=== PATIENT | female | born 1985 | race Caucasian/White ===

== ENCOUNTER 2017-03-23 09:39 | Day surgery (SDC) | payer OTHER ==
[2017-03-23] VITALS (11 sets, daily range): BP systolic 115–126; BP diastolic 67–88; PULSE 65–74; RESP 14–26; O2SAT 95–97
[~2017-03-23] VITALS: Ht 167.6 cm; Wt 115.0 kg
[~2017-03-23 09:39] MED LIST: GABA-502 PO; HYOS0.3740 PO; IBUP200C PO; OXYB5TAB10 PO; PENT100C9 PO; PHEN-683 PO; THYR60TA2 PO; TRAM50TA2 PO; [UNRECOGNIZED DRUG - CODE] PO
[2017-03-23] MEDS ORDERED: Propofol 10,000 mCg/mL 20 mL Inj ONE (09:40)
[2017-03-23] MEDS ORDERED: Ondansetron 2 mg/mL 2 mL Inj ONE (09:40)
[2017-03-23] MEDS ORDERED: Dexamethasone 4 mg/mL Inj ONE (09:40)
[2017-03-23] MEDS ORDERED: fentaNYL-PF 50 mCg/mL 2 mL Inj ONE (09:40)
[2017-03-23] MEDS ORDERED: CeFAZolin Inj 2 gm / 50mL D5W IV ONE (09:43)
[2017-03-23] MEDS: Lactated Ringer's 1,000 ML IV SCH ×2 (09:47→10:30)
[2017-03-23] MEDS ORDERED: Lactated Ringer's 1,000 ML IV SCH (10:49)
[2017-03-23] MEDS ORDERED: Lactated Ringer's 500 ML IV PRN (10:49)
--- NOTE | 2017-03-23 10:49 | PCM.HPANE ---
Patient Data Surgeon Admitting Provider: Attending Provider:Mckenzie Lacy MD Primary Care Physician:Other,Physician Other Provider:Giuseppe Upton Anesthesia Reason for Visit Chronic Interstitial Cystitis Ht/WT & BMI Height (Feet): 5 Height (Inches): 6 Weight (Kilograms): 115.666 Body Mass Index 40.00 Allergies Coded Allergies: sulfamethoxazole (Verified Allergy, Severe, Hives, 03/18/17) trimethoprim (Verified Allergy, Severe, Hives, 03/18/17) Macrolide Antibiotics (Verified Allergy, Unknown, UNKNOWN, 03/18/17) codeine (Verified Allergy, Unknown, UNKNOWN, 03/18/17) erythromycin base (Verified Allergy, Unknown, UNKNIOWN, 03/18/17) latex (Verified Allergy, Unknown, UNKNOWN, 03/18/17) minocycline (Verified Allergy, Unknown, UNKNOWN, 03/18/17) amitriptyline (Verified Adverse Reaction, Severe, Agitation, 03/18/17) metoclopramide (Verified Adverse Reaction, Severe, Agitation, 03/18/17) metoprolol (Verified Adverse Reaction, Severe, Agitation, 03/18/17) promethazine (Verified Adverse Reaction, Severe, Agitation, 03/18/17) Uncoded Allergies: ANTI-INFECTIVES OPH/OTIC (Allergy, Unknown, UNKNOWN, 03/18/17) LACTAID INTOLERANT, WHEAT (Allergy, Unknown, UNKNOWN, 03/18/17) POVIDONE IODINE (Generic Allergy) (Allergy, Unknown, UNKNOWN, 03/18/17) Past Anesthesia History Anesthesia History: Denies:: Anesthesia Reactions, Malignant Hyperthermia Diabetes History Hx Diabetes?: No MRSA MRSA: No Medications Hypertension Medication: No Home Meds Incl Beta Marybel: No Reported Medications Phenazopyridine (Pyridium)100 Mg [id number] Mg PO TID For Painful Urination Ref 0 03/18/17 Oxybutynin Chloride 5 Mg Tablet5 Mg PO Q 3 DAYS Ref 0 03/18/17 Ibuprofen 200 Mg [id number] Mg PO QID PRN For Pain Ref 0 03/18/17 Hyoscyamine ER 0.375 Mg Tablet0.375 Mg PO QPM 03/18/17 Gabapentin 300 Mg [id number] Mg PO TID Ref 0 03/18/17 Pentosan Polysulfate Sodium (Elmiron)100 Mg [id number] Mg PO TID 03/18/17 Pnv17/Iron/FA/Fish Oil/Dha/Om (Elite-Ob 400 Capsule)1 Each Capsule1 Each PO DAILY 03/18/17 Thyroid,Pork ([place] Thyroid)60 Mg Wwwhfv78 Mg PO DAILY 03/18/17 Tramadol 50 Mg Jwuojw20 Mg PO Q4H PRN For Pain Ref 0 03/18/17 Discontinued Scripts Hydrocodone-Acetaminophen 5-325 mg 1 Each Tablet1 Tablet PO QID PRN For Pain # 12 TABLET Ref 0 Prov:Enoc Finley PAC 07/17/16 History History of ENT Problems?: No HEENT History: Denies:: Abnormal Airway Cataracts Difficult Intubation Dysphagia Glaucoma Hearing Problem Sinus Problem TMJ Denture Type: None Teeth Condition: Within Normal Limits Hx of Heart Problems?: Yes Cardiovascular History: Positive for:: Chest Pain (2003-R/T ANXIETY) Denies:: Heart Murmur Hypertension Hx of Respiratory Problem?: Yes Respiratory History: Positive for:: Asthma Denies:: Use of C-PAP Machine Hx Neurologic Problems?: Yes Neurological History: Positive for:: Headaches Hx of GI Problems?: Yes Other GI Pertinent History: HX IBS C/OF NAUSEA & DIARRHEA Hx of Problems?: Yes Genitourinary History: Positive for:: Urinary Tract Infection (INTERSTITIAL CYSTITIS (CHRONIC)=CURRENT PROBLEM) Other Pertinent History: S/P MULT. CYSTOS Female Hx: Positive for:: Endometriosis Pelvic Inflammatory (HX HSV, CHLAMYDIA) Denies:: Currently (S/P OOPHORECTOMY-HX OVARIAN CYST,D&C,C/S) Skin History: Denies:: History Skin Disorders? Pressure Ulcers Hx Musculoskeletal Problems?: Yes Musculoskeletal History: Positive for:: Fibromyalgia Musculoskeletal Trauma (C/OF HIP PAIN) Denies:: Back Injury (C/OF UPPER/LOWER BACK PAIN) Hx of Psycho/Social Problems?: Yes Psycho Social History: Positive for:: Anxiety (PTSD) Hx Surgeries?: Yes (D&C,C/S,LT WRIST GANGLION EXC,CYSTOS,OOPHORECTOMY) Hx Any Other Health Problems?: Yes Other History: Positive for:: Thyroid Disease Denies:: Cancer Endocrine Disease Hospitalization Hx Diabetes: No Hx Alcohol Use: YesHx Substance Use: No Smoking Status: Former Smoker Have You Smoked inLast 12 mo: No Stop/Bang S-Snoring: Do You Snore Loudly: No T-Tired: feel tired, fatigued: Yes O-Obsered: Observed not breath: No P-Blood Pressure: treated: No B- Body Mass Index > 35 kg/m2: Yes A- Age over 50: No N- Neck Large Circumference: Yes G- Gender Male: No BERTA Total Score: 3 BERTA Risk Assessment: Low Risk, <3 Yes Risk Assessment Category Category 1A: Patient has history of documented sleep apnea, and HAS NOT received any narcotic, sedative or anesthesia administration during this stay. Category 1B: Patient has history of documented sleep apnea, and HAS received any narcotic , sedative or anesthesia administration during this stay Category 2: Patient has SUSPECTED Obstructive Sleep Apnea, and HAS received any narcotic , sedative or anesthesia administration during this stay. Category 3: Patient has SUSPECTED Obstructive Sleep Apnea and HAS NOT received narcotic, sedative or anesthesia administration during this stay. Category 4: Outpatient in Procedural Areas with known sleep apnea or who screen positive for High Risk via the STOP/BANG questionnaire. Exam Exam General Appearance: Alert, Oriented X3, Cooperative HEENT/AIRWAY: MP 2 Lungs: Clear to Auscultation Heart: Exam Unremarkable, Regular Rate/Rhythm Meds/Labs/Diagnostics Admission Meds Current Medications Lactated Ringer's (Lr) 1,000 ml @ 120 mls/hr Q8H20M IV Last administered on 09:47; Start 03/23/17 at 05:00; Stop 03/23/17 at 13:19 Plan Impression Patient chart reviewed, patient interviewed and anesthestic plan with risks, benefits, and alternatives discussed, and informed consent obtained. ASA Physical Status: ASA2 Mod Systemic Disease Anesthetic Plan: GA Bene/Risks/Altern/Consents: Yes HP Complete Prior to Induction: Yes El Mitchell DO Mar 23, 2017 10:00
[2017-03-23] MEDS ORDERED: HYDROmorphone 1 mg/mL Inj IVPUSH PRN (10:50)
[2017-03-23] MEDS ORDERED: Atropine 0.4 mg/mL Inj IVPUSH PRN (10:50)
[2017-03-23] MEDS ORDERED: EPHEDrine Sulfate 50 mg/mL Inj IVPUSH PRN (10:50)
[2017-03-23] MEDS ORDERED: Ondansetron 2 mg/mL 2 mL Inj IVPUSH PRN (10:50)
[2017-03-23] MEDS ORDERED: Dexamethasone 4 mg/mL Inj IVPUSH PRN (10:50)
[2017-03-23] MEDS ORDERED: Phenylephrine 10,000 mCg/mL Inj IVPUSH PRN (10:50)
[2017-03-23] MEDS ORDERED: Belladonna Alk-Opium 60 mg Rectal Suppository RECTAL ONE ×2 (11:10→11:12)
[2017-03-23] MEDS ORDERED: HYDROcodone-APAP 5-325 mg Tablet PO PRN (11:25)
[2017-03-23] MEDS ORDERED: Ondansetron 8 mg ODT Tablet PO PRN (11:25)
[2017-03-23] MEDS ORDERED: Phenazopyridine 97.5 mg Tablet PO PRN (11:25)
[2017-03-23] MEDS: fentaNYL-PF 50 mCg/mL 2 mL Inj IVPUSH PRN ×2 (11:42→12:03)
--- NOTE | 2017-03-23 14:18 | PCM.ANEP1 ---
Post Anesthesia Phase 1 PACU Phase 1 Assessment Vital Signs Vital Signs Date Time Temp Pulse Resp B/P Pulse Ox O2 Delivery O2 Flow Rate FiO2 03/23/17 12:53 68 16 116/67 97 Room Air 03/23/17 12:15 65 16 123/76 97 Room Air 03/23/17 12:10 67 19 120/73 96 Room Air 03/23/17 12:00 70 18 121/74 97 Room Air 03/23/17 11:50 68 21 116/74 96 Room Air 03/23/17 11:45 36.8 70 18 116/73 96 Room Air 03/23/17 11:40 69 26 115/76 96 Room Air 03/23/17 11:30 67 17 119/80 95 Room Air 03/23/17 11:25 69 14 115/80 95 Room Air 03/23/17 11:20 36.9 68 14 126/78 95 Room Air 03/23/17 10:02 36.5 74 16 119/88 95 Room Air Anesthetic Administered: GA Level of Alertness: Awake, talking BRANHAM's with Equal Strength: Yes Pain: No Nausea or Vomiting: No Cardiovascular Function and Hy: Yes Oxygen Delivery: Simple Mask Lungs: Clear to Auscultation Dermatome Level: Full Sensation Complications: No Follow up Care: No Patient Instructions Provided: Yes El Mitchell DO Mar 23, 2017 14:18
--- NOTE | 2017-03-24 09:30 | OP ---
[address] [address] OPERATIVE REPORT PATIENT: CORY MARTIN : 1985 MR#: [id number] ADMIT: 03/23/2017 JOB ID: [id number] DATE OF SURGERY: 03/23/2017 PROCEDURE NAME: Cystoscopy with hydrodistention and Clorpactin instillation. SURGEON: Mckenzie Lacy M.D. ANESTHESIA: General. PREOPERATIVE DIAGNOSIS(ES): Longstanding pelvic pain, interstitial cystitis, urinary urgency, frequency. POSTOPERATIVE DIAGNOSIS(ES): Longstanding pelvic pain, interstitial cystitis, urinary urgency, frequency. INDICATIONS: The patient is a 31-year-old woman with longstanding history of above-mentioned symptoms failing medical management and electing trial of hydrodistention with Clorpactin instillation. PROCEDURE IN DETAIL: After appropriate informed consent was obtained, the patient was brought to the operating room. She received IV antibiotics prior to onset of the procedure. SCDs were placed. Adequate general anesthesia was induced. She was carefully placed in the dorsal lithotomy position. All pressure points carefully padded. Cleaned, prepped, and draped in the usual sterile fashion. Rigid scope was introduced into the patient's bladder which was surveyed. Found to be completely normal in appearance. She was hydrodistended to 80 cm and held for 3-4 minutes. Bladder volume after this was 850, captured. There were a few petechiae. After this, she was hydrodistended a second time with the same procedure. We measured 950-1000 the second time. There was very minimal bleeding and a few petechiae once again. We then instilled the Clorpactin solution. This was allowed to dwell for 5 minutes and then drained out completely. The patient's urine was a very light pink. She tolerated this very well. She was awakened, taken in stable condition to the postanesthesia care unit.
== END 2017-03-23 23:59 | disposition home or self-care (01) ==
LOC: SAS 09:39
PROVIDERS: ATTEND Urology
PROC: 0T7B8ZZ Dilation of Bladder, Via Natural or Artificial Opening Endoscopic (ICD-10-PCS; principal; 2017-03-23 10:15)
DX: N30.10 Interstitial cystitis (chronic) without hematuria (principal); M79.7 Fibromyalgia; R39.15 Urgency of urination; E66.01 Morbid (severe) obesity due to excess calories; Z68.41 Body mass index [BMI] 40.0-44.9, adult
CPT/HCPCS: 52260; J0690; J1100; J1885; J2405; J3010; J7120